=== PATIENT | male | born 1975 | race Caucasian/White ===

== ENCOUNTER 2021-01-01 12:46 | Emergency (ER) | payer OTHER, SELFPAY ==
[2021-01-01] VITALS (13 sets, daily range): BP systolic 104–151; BP diastolic 67–101; PULSE 81–174; RESP 12–20; TEMP 36.3; O2SAT 94–100; BMI 38.0
--- NOTE | 2021-01-01 12:51 | EKG12_ITS ---
Test Reason : PALP Blood Pressure : / mmHG Vent. Rate : 175 BPM Atrial Rate : 182 BPM P-R Int : 000 ms QRS Dur : 074 ms QT Int : 238 ms P-R-T Axes : 000 050 254 degrees QTc Int : 406 ms Atrial fibrillation with rapid ventricular response ST & T wave abnormality, consider inferior ischemia Abnormal ECG Confirmed by MARIANN THOMAS, DELLA ([id number]), international editorial producer ABDULLAHI CANO ([id number]) on 01/04/2021 11:45:13 A M Referred By: Confirmed By:KWESI WAITE MD
--- NOTE | 2021-01-01 13:04 | EKG12_ITS ---
Test Reason : POST CARDIOVERSION Blood Pressure : / mmHG Vent. Rate : 094 BPM Atrial Rate : 094 BPM P-R Int : 142 ms QRS Dur : 090 ms QT Int : 364 ms P-R-T Axes : 065 043 041 degrees QTc Int : 455 ms Normal sinus rhythm Normal ECG Confirmed by MARIANN THOMAS, DELLA ([id number]), newspaper managing editor ABDULLAHI CANO ([id number]) on 01/04/2021 11:40:45 A M Referred By: LUCILLE Confirmed By:KWESI WAITE MD
[2021-01-01] MEDS: Aspirin 81 MG TAB.CHEW 324 MG PO (13:13)
[2021-01-01] MEDS: Metoprolol Tartrate 5 MG/5 ML Vial IV ×3 (13:18→13:32)
[2021-01-01] MEDS: Etomidate 20 MG/10 ML Vial IV (14:02)
[2021-01-01 14:23] LABS: Absolute Lymphocyte Count 3.35 X10^3/uL (0.83-4.51); Absolute Neutrophil Count 3.5 X10^3/uL (2.0-7.7); Basophil# 0.03 X10^3/uL; Basophil% 0.4 % (0-1); Eosinophil# 0.03 X10^3/uL; Eosinophils% 0.4 % (0-5); Hematocrit 41.5 % (40-54); Hemoglobin 15.7 g/dL (13.0-16.5); Lymphocyte # 3.35 X10^3/ul (4.0); Lymphocyte % 43.3 % (19-41); Mean Corp Hgb Conc 37.8 g/dL (32-36); Mean Corpuscular Hgb 37.1 pg (27.0-32.0); Mean Corpuscular Volume 98.1 fL (80-94); Mean Platelet Vol. 12.6 fl (6.2-12.0); Monocyte# 0.76 X10^3/uL; Monocyte% 9.8 % (0-10); NRBC Flagged by Analyzer 0 % (0-5); Neutrophil # 3.54 X10^3/uL (2.7-7.7); Neutrophil % 45.8 % (47-70); POSITIVE COUNT YES; Platelet Count 150 K/mm3 (150-450); RBC Distribution Width CV 14.4 % (11.6-14.6); RBC Distribution Width SD 52.3 fl (35.1-43.9); Red Blood Count 4.23 M/mm3 (4.6-6.2); White Blood Count 7.7 K/mm3 (4.4-11.0)
--- NOTE | 2021-01-01 14:31 | NURSING ---
[facility]
[2021-01-01] MEDS: Metoprolol Tartrate 25 MG Tablet 50 MG PO (15:16)
[2021-01-01] MEDS: Propofol 200 MG/20 ML Vial 360 MG IV BOLUS (15:17)
--- NOTE | 2021-01-01 16:29 | ED.DCSUM_ITS ---
History of Present Illness Chief Complaint: Palpitations Informant: Patient Narrative: Patient presenting for evaluation secondary to palpitations. Patient reports that he has an underlying history of paroxysmal A. fib, [place] had an onset of this where he was chemically cardioverted. He is not anticoagulated, but he does take metoprolol for rhythm control. Patient states that this morning at about 8 AM he had onset of palpitations. He denies chest pain. Denies shortness of breath. Patient denies recent illness. Patient thought this would get better, he went to a restaurant this afternoon but they took too long to get him his food so he came to the emergency department. Past Medical History - Allergies and Home Meds Allergies/Adverse Reactions: Allergies No Known Allergies Allergy (Verified 01/01/21 13:03) Primary Care Physician: KATELYN HOUSTON [Other] Prior records reviewed: Yes Past Medical History: - - Paroxysmal A. fib Lives: Spouse/ Significant Other Smoking Status: Current every day smoker Alcohol: None Drugs: None Review of Systems All systems negative except as indicated General: Denies: Chills, Fever, Sweats Eyes: Denies: Visual changes - bilaterally, Diplopia ENT: Denies: Rhinorrhea, Sore throat Cardiovascular: Reports: Palpitations Respiratory: Denies: Dyspnea, Cough, Dyspnea on exertion Gastrointestinal: Denies: Abdominal pain, Nausea, Vomiting, Diarrhea, Melena, Hematochezia Genitourinary: Denies: Dysuria, Hematuria, Frequency Musculoskeletal: Denies: Back pain, Extremity Pain Skin: Denies: Rash, Wounds Neurological: Denies: Headache, Weakness, Numbness Physical Exam Vital Signs/Narrative: Vital Signs Temp Pulse Pulse Pulse Pulse Pulse Pulse 01/01/21 15:11 99 01/01/21 14:32 91 01/01/21 14:27 89 01/01/21 14:26 88 01/01/21 14:22 97 01/01/21 14:04 149 H 150 H 160 H 143 H 153 H 01/01/21 13:58 148 H 01/01/21 13:33 143 H 01/01/21 13:23 154 H 01/01/21 13:12 01/01/21 13:03 174 H 01/01/21 12:48 97.4 F L 125 H Pulse Resp Resp Resp Resp Resp Resp 01/01/21 15:11 18 01/01/21 14:32 17 01/01/21 14:27 14 01/01/21 14:26 16 01/01/21 14:22 18 01/01/21 14:04 95 18 14 20 H 12 16 01/01/21 13:58 20 H 01/01/21 13:33 20 H 01/01/21 13:23 14 01/01/21 13:12 01/01/21 13:03 01/01/21 12:48 18 Resp BP BP BP BP BP BP 01/01/21 15:11 129/86 H 01/01/21 14:32 141/101 H 01/01/21 14:27 140/88 H 01/01/21 14:26 01/01/21 14:22 117/67 01/01/21 14:04 18 120/84 H 146/97 H 143/87 H 143/87 H 104/76 01/01/21 13:58 108/86 H 01/01/21 13:33 125/96 H 01/01/21 13:23 135/86 H 01/01/21 13:12 01/01/21 13:03 01/01/21 12:48 151/93 H BP Pulse Ox 01/01/21 15:11 96 01/01/21 14:32 95 01/01/21 14:27 97 01/01/21 14:26 95 01/01/21 14:22 95 01/01/21 14:04 117/67 01/01/21 13:58 97 01/01/21 13:33 94 01/01/21 13:23 97 01/01/21 13:12 96 01/01/21 13:03 01/01/21 12:48 95 Inital Vital Signs reviewed: Yes General: Well nourished, Well developed, No Acute Distress Head: Normocephalic, Atraumatic Eyes: Perrl, EOMI ENT: Moist mucous membranes, No rhinorrhea Neck: Supple, Nontender Cardiovascular: No murmurs, Irregular, Tachycardia Respiratory: No distress, CTA bilaterally, Chest nontender Abdomen: Soft, Nontender, Nondistended, Normal bowel sounds Back: Nontender, Normal Inspection Extremities: Nontender, No edema Skin: Normal color, No rash Neurological: Alert, Oriented x3, Cranial nerves II-XII grossly intact, Normal Strength, Normal Sensation Psychological: Normal affect, Normal Mood Diagnostic/Tx/Re-eval Laboratory Data 01/01/21 01/01/21 13:35 13:35 WBC 7.7 RBC 4.23 L Hgb 15.7 Hct 41.5 MCV 98.1 H MCH 37.1 H MCHC 37.8 H RDW Std Deviation 52.3 H RDW Coeff of Gonzales 14.4 Plt Count 150 MPV 12.6 H Immature Gran % (Auto) 0.300 Neut % (Auto) 45.8 L Lymph % (Auto) 43.3 H Braxton % (Auto) 9.8 Eos % (Auto) 0.4 Baso % (Auto) 0.4 Absolute Neuts (auto) 3.5 Absolute Lymphs (auto) 3.35 Nucleated RBC % 0 Sodium Cancelled Potassium Cancelled Chloride Cancelled Carbon Dioxide Cancelled Anion Gap Cancelled BUN Cancelled Creatinine Cancelled Estim Creat Clear Calc Cancelled Est GFR (MDRD) Af Amer Cancelled Est GFR (MDRD) Non-Af Cancelled BUN/Creatinine Ratio Cancelled Glucose Cancelled Calcium Cancelled Troponin I Cancelled - EKG Initial EKG Interpretation: - - Atrial fibrillation with rapid ventricular rate of 175, ST depressions are noted laterally. No evidence of ST elevation. Follow-up EKG Interpretation: - - Sinus rhythm [address] segments normal T waves normal HI and QTc intervals no evidence of acute ischemia or arrhythmia - Medical Decision Making Patient presented secondary to a known onset of atrial fibrillation. Patient was given Lopressor x3 and had some improvement of his rate, but continued to have a tachycardic rhythm. Given the known onset I believe the patient warrants cardioversion. He was given informed consent for this. Patient was sedated with etomidate and then was sedated with propofol and a total of 3 cardioversions were performed that ultimately were successful. Patient remained in sinus rhythm after that. I discussed patient's case on the telephone with cardiology who recommends increasing his metoprolol dose to 50 mg twice a day. Patient will follow up with cardiology. Patient was discharged in stable condit ion after approximately a 4-hour observation. Critical care time (excluding procedures): 30-74 minutes Procedures Procedure(s): Timeout was performed, patient was placed on continuous monitoring and supplemental oxygen. Patient was given a total of 20 mg of etomidate with good moderate sedation. He was attempted to be cardioverted and 100 then 150 J but was unsuccessful. Patient was then further sedated with a total of 360 mg of propofol given in subsequent aliquots. He again had good sedation was attempted to be cardioverted again at 150 which was successful. ED Disposition - Plan for ED Patient: Disposition: Home or Assisted Living Diagnosis: Paroxysmal A-fib Instructions: ED AFIB Prescriptions: Metoprolol Tartrate 50 mg PO BID #60 tab Prescription Printed Referrals: Reginaldo Shabazz MD [STAFF PHYSICIAN] - 3-5 Days
[2021-01-01 16:50] LABS: Anion Gap 6 (5-15); BUN 15 mg/dL (7-18); BUN/Creat Ratio 13.9 RATIO (10-20); Calcium,Total 7.4 mg/dL (8.5-10.1); Chloride 102 mmol/L (98-107); Creatinine, Serum 1.08 mg/dL (0.70-1.30); EST Glomerular Filtration Rate 78 mL/min (>60); Est Glom Filt Rate - Afr Amer 94 mL/min (>60); Estimated Creatinine Clearance 92.81 ml/min; Glucose 194 mg/dL (74-106); Potassium 5.8 mmol/L (3.5-5.1); Sodium Level 131 mmol/L (136-145)
== END 2021-01-01 16:59 | disposition home or self-care (01) ==
PROVIDERS: Emergency Provider Emergency Medicine
DX: I48.0 Paroxysmal atrial fibrillation (principal); F17.200 Nicotine dependence, unspecified, uncomplicated
CPT/HCPCS: 36415; 80048; 84484; 85025; 92960; 93005; 99152; 99284; J7030; A4216